=== PATIENT | female | born 1950 | race Caucasian/White ===

== ENCOUNTER → 2024-09-22 | Outpatient (CLI) | payer MEDICARE, SELFPAY ==
[2024-09-22 09:29] LABS: Basophils # (Auto) 0.1 Thou/mm3 (0.0-0.2); Basophils % (Auto) 1 % (0-2.5); Eosinophils # (Auto) 0.4 Thou/mm3 (0.0-0.5); Eosinophils % (Auto) 4 % (0-10); Hematocrit 44.3 % (36.0-46.0); Hemoglobin 14.3 g/dL (12.0-16.0); Immature Granulocytes % (Auto) 0 % (0-0); Immature Granulocytes Auto 0.03 Thou/mm3 (0.00-0.00); Lymphocytes # (Auto) 1.8 Thou/mm3 (1.0-4.8); Lymphocytes % (Auto) 19 % (10-50); Mean Corpuscular HGB Conc 32.3 g/dl (31.0-37.0); Mean Corpuscular Volume 93 fL (80-100); Monocytes # (Auto) 0.8 Thou/mm3 (0.0-0.8); Monocytes % (Auto) 8 % (0-12); Neutrophils # (Auto) 6.4 Thou/mm3 (1.8-7.7); Neutrophils % (Auto) 68 % (37-80); Nucleated Red Blood Cell % 0 /100 WBC (0); Platelet Count 238 Thou/mm3 (140-440); RDW Standard Deviation 49.7 fL (36.4-46.3); Red Blood Count 4.77 Miln/mm3 (4.00-5.20); White Blood Count 9.5 Thou/mm3 (3.6-11.0)
[2024-09-22 09:38] LABS: B-Type Natriuretic Peptide 68 pg/mL (0-100)
[2024-09-22 09:41] LABS: Glucose Estimated Average 134 mg/dL (80-131); Hemoglobin A1C 6.3 % Hgb (4.8-6.0)
[2024-09-22 09:51] LABS: Alanine Aminotransferase 12 U/L (10-49); Albumin, Serum 4.2 gm/dL (3.4-4.8); Albumin/Globulin Ratio 1.5 (1.2-2.2); Alkaline Phosphatase 81 U/L (46-116); Anion Gap 7 (7-16); Aspartate Amino Transferase 14 U/L (0-34); BUN/Creatinine Ratio 20 Ratio (12-20); Bilirubin,Total 0.6 mg/dL (0.3-1.2); Blood Urea Nitrogen 20 mg/dL (9-23); Calcium 9.7 mg/dL (8.3-10.6); Calcium (Corrected) 9.7 mg/dL (8.5-10.1); Carbon Dioxide 28.3 mMol/L (20.0-31.0); Cardiac Risk Estimate 3.6 RATIO (3.7-5.6); Chloride 103 mMol/L (98-107); Cholesterol 142 mg/dL (132-200); Globulin 2.8 gm/dL (2.3-3.5); Glucose 133 mg/dL (74-106); HDL Cholesterol 40 mg/dL (40-60); LDL Cholesterol,Calculated 76 mg/dL (0-130); Magnesium 1.8 mg/dL (1.6-2.6); Osmolality,Calculated 280 (275-295); Potassium 4.6 mMol/L (3.4-5.1); Sodium 138 mMol/L (136-145); Thyroid Stimulating Hormone 3.24 uIU/mL (0.55-4.78); Triglycerides 132 mg/dL (30-150); eGFR 58 See Note
== END | disposition home or self-care (01) ==
LOC: COPL 08:07
PROVIDERS: PCP Family Medicine; Referring Provider Internal Medicine Cardiovascular Disease; Visit Provider Internal Medicine Cardiovascular Disease
DX: I16.0 Hypertensive urgency (principal); J44.9 Chronic obstructive pulmonary disease, unspecified; E78.5 Hyperlipidemia, unspecified
CPT/HCPCS: 36415; 80053; 80061; 83036; 83735; 83880; 84439; 84443; 85025

== ENCOUNTER → 2024-11-16 | Outpatient (CLI) | payer MEDICARE, SELFPAY ==
[2024-11-16 10:07] LABS: Anion Gap 9 (7-16); BUN/Creatinine Ratio 22 Ratio (12-20); Blood Urea Nitrogen 24 mg/dL (9-23); Calcium 10.1 mg/dL (8.3-10.6); Carbon Dioxide 26.3 mMol/L (20.0-31.0); Chloride 106 mMol/L (98-107); Creatinine (Component) 1.1 mg/dL (0.6-1.3); Glucose 154 mg/dL (74-106); Magnesium 1.8 mg/dL (1.6-2.6); Osmolality,Calculated 288 (275-295); Potassium 4.9 mMol/L (3.4-5.1); Sodium 141 mMol/L (136-145); eGFR 52 See Note
== END | disposition home or self-care (01) ==
LOC: COPL 08:22
PROVIDERS: PCP Family Medicine; Referring Provider Internal Medicine Cardiovascular Disease; Visit Provider Internal Medicine Cardiovascular Disease
DX: I25.10 Atherosclerotic heart disease of native coronary artery without angina pectoris (principal); I10 Essential (primary) hypertension
CPT/HCPCS: 36415; 80048; 83735

== ENCOUNTER → 2025-02-13 | Outpatient (CLI) | payer MEDICARE, SELFPAY ==
[2025-02-13 09:47] LABS: Anion Gap 7 (7-16); BUN/Creatinine Ratio 22 Ratio (12-20); Blood Urea Nitrogen 24 mg/dL (9-23); Calcium 10.4 mg/dL (8.3-10.6); Carbon Dioxide 27.8 mMol/L (20.0-31.0); Chloride 103 mMol/L (98-107); Creatinine (Component) 1.1 mg/dL (0.6-1.3); Glucose 148 mg/dL (74-106); Magnesium 1.8 mg/dL (1.6-2.6); Osmolality,Calculated 282 (275-295); Potassium 4.6 mMol/L (3.4-5.1); Sodium 138 mMol/L (136-145); eGFR 52 See Note
== END | disposition home or self-care (01) ==
LOC: COPL 08:07
PROVIDERS: PCP Family Medicine; Referring Provider Internal Medicine Cardiovascular Disease; Visit Provider Internal Medicine Cardiovascular Disease
DX: I25.10 Atherosclerotic heart disease of native coronary artery without angina pectoris (principal)
CPT/HCPCS: 36415; 80048; 83735

== ENCOUNTER 2025-05-10 06:31 | Day surgery (SDC) | payer MEDICARE, SELFPAY ==
[2025-05-08 12:51] VITALS: BMI 43.7
--- NOTE | 2025-05-09 07:00 | EKG_ITS ---
[facility] Test Date: 2025-05-09 Pat Name: ASHLEY WILLIS Department: Room: - Gender: Female Clinical Business Manager: IDALMIS : 1950 Requested By: Brian Smith Order Number: [id number] Reading MD: Brian Smith Measurements Intervals [place] Rate: 76 P: 26 PA: 198 QRS: -27 QRSD: 168 T: 125 QT: 416 QTc: 469 Interpretive Statements SINUS RHYTHM WITH OCCASIONAL VENTRICULAR PREMATURE COMPLEXES LEFT BUNDLE BRANCH BLOCK [120+ ms QRS DURATION, 80+ ms Q/S IN V1/V2, 85+ ms R IN I/aVL/V5/V6] Compared to ECG 06/29/2023 09:14:48 Ventricular premature complex(es) now present Left-axis deviation no longer present /store/S0/[id number]/ecg/[id number].pdf
[2025-05-09 11:35] LABS: Basophils # (Auto) 0.1 Thou/mm3 (0.0-0.2); Basophils % (Auto) 1 % (0-2.5); Eosinophils # (Auto) 0.5 Thou/mm3 (0.0-0.5); Eosinophils % (Auto) 4 % (0-10); Hematocrit 46.1 % (36.0-46.0); Hemoglobin 14.9 g/dL (12.0-16.0); Immature Granulocytes Auto 0.07 Thou/mm3 (0.00-0.00); Lymphocytes # (Auto) 2.4 Thou/mm3 (1.0-4.8); Lymphocytes % (Auto) 18 % (10-50); Mean Corpuscular HGB Conc 32.3 g/dl (31.0-37.0); Mean Corpuscular Hemoglobin 30.3 pg (25.0-35.0); Mean Corpuscular Volume 94 fL (80-100); Monocytes # (Auto) 1.0 Thou/mm3 (0.0-0.8); Monocytes % (Auto) 8 % (0-12); Neutrophils # (Auto) 9.3 Thou/mm3 (1.8-7.7); Neutrophils % (Auto) 70 % (37-80); Nucleated Red Blood Cell # 0.00 Thou/mm3 (0.00-0.00); Nucleated Red Blood Cell % 0 /100 WBC (0); Platelet Count 279 Thou/mm3 (140-440); RDW Standard Deviation 52.1 fL (36.4-46.3); Red Blood Count 4.92 Miln/mm3 (4.00-5.20); White Blood Count 13.4 Thou/mm3 (3.6-11.0)
[2025-05-09 11:42] LABS: Anion Gap 9 (7-16); BUN/Creatinine Ratio 18 Ratio (12-20); Blood Urea Nitrogen 20 mg/dL (9-23); Calcium 10.3 mg/dL (8.3-10.6); Carbon Dioxide 28.8 mMol/L (20.0-31.0); Chloride 103 mMol/L (98-107); Creatinine (Component) 1.1 mg/dL (0.6-1.3); Estimated Creatinine Clearance 54.3 mL/min (>60); Glucose 136 mg/dL (74-106); Osmolality,Calculated 285 (275-295); Potassium 4.9 mMol/L (3.4-5.1); Sodium 141 mMol/L (136-145); eGFR 52 See Note
[2025-05-09 11:43] LABS: INR 1.0 (0.9-1.3); Partial Thromboplastin Time 26.6 Seconds (22.0-36.0); Prothrombin Time 11.1 Seconds (9.0-12.2)
[2025-05-10] VITALS (11 sets, daily range): BP systolic 99–170; BP diastolic 58–94; PULSE 72–93; RESP 13–24; TEMP 36.2–36.8; O2SAT 90–98
--- NOTE | 2025-05-10 10:15 | XR_ITS ---
Examination: AP chest single view Technique one AP upright portable chest single view Date and time: May 10, 2025 1017 hours, comparison January 16, 2023 INDICATIONS: Postop pacemaker insertion today. FINDINGS: Cardiac leads satisfactory position Mild enlargement left ventricle, CABG Mild prominent central pulmonary vasculature. No pneumothorax IMPRESSION: Cardiac leads satisfactory position
[2025-05-10] MEDS: VANCOMYCIN/NS 1 GM IVPB 200 ML IV (10:30)
--- NOTE | 2025-05-10 10:53 | PC.NURSE ---
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 Report received from Thiago ESCOBAR, patient to recover until chext xray and vancomycin antibiotic are completed. 1015 chest xray completed 1030 patient sitting in gurney eating, vancomycin antibiotic started 1045 pt tolerated food with no nausea or vomiting
--- NOTE | 2025-05-10 14:28 | PC.NURSE ---
1228 patient is awake, alert, breathing unlabored, no bleeding noted to left chest dressing, arm sling in place. Vancomycin antibiotic completed, No pneumothorax seen on chest xray, leads in satisfactory position. patient able to tolerate food with no nausea or vomiting, able to ambulate to bathroom and void, meets discharge criteria, discharge instructions given to patient and family member, patient discharged home in wheelchair with all belongings. 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
--- NOTE | 2025-05-10 19:18 | ESOP_ITS ---
RE: ASHLEY WILLIS : 1950 DATE OF OPERATION: 05/10/2025 FELT CUTTER: MAEVE JAMES MD [facility] [place] MACHINE TENDER: DAVID BULLOCK MD PROCEDURES PERFORMED: 1. Implantation of cardiac resynchronization therapy defibrillator (CRTD), multilead defibrillator placement, CPT code 85979. 2. Placement of the left ventricular lead in lateral cardiac vein, CPT code 92236. 3. Coronary sinus venogram. 4. Conscious sedation, 1 hour and 40 minute duration. DIAGNOSES: 1. Chronic systolic heart failure, severe left ventricular dysfunction, ejection fraction 20-25%, NYHA functional class III on maximum medical management, high risk for sudden cardiac . 2. Ischemic cardiomyopathy, status post bypass graft surgery with severe left ventricular dysfunction, ejection fraction 25%. 3. Left bundle branch block with wide QRS 168 millisecond duration meets criteria for STORYBOARD ARTIST defibrillator implantation . HISTORY AND INDICATIONS: The patient is a 74-year-old female with a longstanding history of coronary artery disease, ischemic cardiomyopathy, coronary artery disease, multivessel bypass graft surgery back in 01/2023, more than 1 year ago. EMERY to LAD, SVG to diagonal and OM branches. She had shortness of breath, congestive heart failure symptoms, NYHA functional class III despite maximum medical management and severe LV dysfunction with EKG showing left bundle branch block morphology with wide QRS complex, 168 millisecond duration. The patient continues to be short of breath on maximum medical management, also high risk for sudden cardiac and more than 1 year following revascularization. The patient met the criteria for ICD implantation for prevention of sudden cardiac . Also met the criteria for cardiac resynchronization therapy because of LBBB and wide QRS interval. The patient met CMS criteria for STORYBOARD ARTIST defibrillator implantation. Class I indication, hence cardiac resynchronization therapy defibrillator implantation is recommended. The patient explained the risks, benefits, and alternatives and she agreed to have the procedure performed. DESCRIPTION OF PROCEDURE: The patient was brought to the cardiac catheterization laboratory. Conscious sedation was given, a total of 4 mg of Versed and 600 mcg of fentanyl. The left subclavian area was prepped in sterile fashion and given 1% Xylocaine for local anesthesia. The left subclavian vein was cannulated with micropuncture technique. Two guidewires were placed. A linear incision was made and a blunt dissection pocket was created. A high-voltage 7-[place] right ventricle [place] [facility] mechanical lead was advanced to the right ventricle apex. During the procedure, she developed complete heart block temporarily, which improved immediately within a few seconds. External pacing was done briefly and RV pacing was done using the high voltage lead. Subsequently, the patient's conduction came back within 2 minutes. RV lead threshold was measured and was attached to the external pacing for safety. A 9-[place] sheath was introduced into the left subclavian vein using standard technique. An 8-[place] guiding catheter was used into the right coronary sinus, using an AL1 diagnostic catheter able to engage the coronary sinus. Coronary sinus venogram was performed, showed there was a high lateral cardiac vein as well as lower cardiac posterolateral cardiac vein. I chose initially for the high cardiac vein. It was extremely tortuous and small. Despite multiple attempts using inner catheter and various techniques, unable to place the guidewire in this vessel hence proceeded next with placement of the lateral cardiac lead in the lateral cardiac vein, the posterolateral cardiac vein, engaged selectively and a guidewire was placed, 0.14 guidewire, an S- shaped left ventricular lead by [employer] was then advanced over the wire technique and placed in the distalmost posterolateral cardiac vein and threshold was found to be satisfactory. After obtaining satisfactory threshold, the sheath was peeled off. Subsequently, an atrial lead was placed in the right atrial appendage successfully and threshold was measured. After obtaining satisfactory thresholds, all the 3 leads were proceeded with attachments to the STORYBOARD ARTIST generator. The generator was secured to the pectoral fascia using 2-0 silk suture. Subsequently, antibiotic solution was used to cleanse the pocket and the wound was closed using 2 layers. 3-0 chromic was used for the inner layer. Subsequently used 2-0 chromic for continuous closure of the pocket. Skin was closed using ortega. The patient tolerated the operation very well. No complications. A chest x-ray post procedure showed no pneumothorax. The patient received pre- antibiotic 2 g of Ancef. Post-procedure, 500 mg of vancomycin was given. The patient will be discharged home the same day. The thresholds at the time of implant are as follows: Left ventricular lead threshold is found to be 3.5 volts, lead impendence of 950. Atrial lead threshold is 1 volt and P-wave 3.2, lead impendence 460 ohms. Right ventricle high voltage lead threshold is 0.5 volts, R-waves 9.4 mV, resistance 650 ohms. Left ventricle lead threshold is 2 volts, 0.5 msec pulse width, 1400 ohm of resistance. High voltage lead impendence 80 ohms. The device details are as follows: The device is manufactured by [employer]. The model number of the device is [place] HF. Serial number is [id number]. Atrial lead is manufactured by [employer], active fixation lead 52 cm length, and serial number [id number]. Right ventricle high voltage lead is Durata 7122Q, [employer], serial number is [id number]. LV lead is [employer] Quartet 1458Q, serial number [id number]. The device is programmed with DDDR rate of 60 beats per minute, maximum track rate of 120, VT zone programmed at 171, VF zone 200, monitor zone up to 170, ATP x1, followed by 36 joules and max 40 joules x5. FINAL SUMMARY: 1. Successful implantation of dual chamber multi-lead cardiac resynchronization therapy defibrillator. 2. Successful placement of left ventricular lead in the lateral cardiac vein. COMPLICATIONS: None. ESTIMATED BLOOD LOSS: 0 mL. cc: Maeve James MD David James Anumandla DT: 18:19:15 TT: 19:09:00 Ref: [id number] - TID: [id number] MTDD
== END 2025-05-10 12:28 | disposition home or self-care (01) ==
PROVIDERS: Internal Medicine Cardiovascular Disease; PCP Family Medicine; Referring Provider Internal Medicine Cardiovascular Disease; Visit Provider Internal Medicine Cardiovascular Disease
PROC: 0JH608Z Insertion of Defibrillator Generator into Chest Subcutaneous Tissue and Fascia, Open Approach (ICD-10-PCS; CPT 33249; principal; 2025-05-10 07:30)
DX: I25.10 Atherosclerotic heart disease of native coronary artery without angina pectoris (principal); I11.0 Hypertensive heart disease with heart failure; F41.9 Anxiety disorder, unspecified; E78.5 Hyperlipidemia, unspecified; I25.5 Ischemic cardiomyopathy; Z95.1 Presence of aortocoronary bypass graft; E66.01 Morbid (severe) obesity due to excess calories; I50.22 Chronic systolic (congestive) heart failure; Z01.810 Encounter for preprocedural cardiovascular examination; I44.7 Left bundle-branch block, unspecified; Z79.02 Long term (current) use of antithrombotics/antiplatelets; Z79.899 Other long term (current) drug therapy; Z68.41 Body mass index [BMI] 40.0-44.9, adult
CPT/HCPCS: 33249; 33225; 36415; 80048; 85025; 85610; 85730; 93005; 99152; 99153; A4565; A4649; C1769; C1777; C1882; C1887; C1894; C1898; C1900; J0153; J0168; J0282; J0461; J0689; J1643; J2250; J2312; J3010; J3373; J3490; C1725; J1920